=== PATIENT | female | born 1945 | race Caucasian/White ===

== ENCOUNTER → 2018-05-11 | Outpatient (CLI) | payer MEDICARE ==
[~2018-05-11] MED LIST: ACETAMINOPHEN TAB 325 MG TAB PO ONE; LORATADINE 10 MG TAB PO ONE; SODIUM CHLORIDE 0.9% 500 ML in EMPTY BAG 1 BAG IV PRN
[2018-05-11 12:31] VITALS: RESP 16; TEMP 98.4
[2018-05-11 14:14] VITALS: BP 100/66; PULSE 75
== END | disposition home or self-care (01) ==
LOC: PROCWHC3 11:19
PROVIDERS: ATTEND Dermatology
DX: L40.0 Psoriasis vulgaris (principal); Z79.899 Other long term (current) drug therapy
CPT/HCPCS: 96413; 96415; J1745

== ENCOUNTER → 2018-07-06 | Outpatient (CLI) | payer MEDICARE ==
[~2018-07-06] MED LIST changes: +INFLIXIMAB-DYYB 400 MG in SODIUM CHLORIDE 0.9% 250 ML IV NR
[2018-07-06 12:40] VITALS: TEMP 97.8
[2018-07-06 14:12] VITALS: BP 112/53; PULSE 53; RESP 16
== END ==
LOC: PROCWHC3 12:11
PROVIDERS: ATTEND Dermatology
DX: L40.0 Psoriasis vulgaris (principal); Z79.899 Other long term (current) drug therapy
CPT/HCPCS: 96413; 96415; Q5103

== ENCOUNTER → 2018-08-31 | Outpatient (CLI) | payer MEDICARE ==
[~2018-08-31] MED LIST changes: +SODIUM CHLORIDE 0.9% 500 ML 500 ML in EMPTY BAG 1 BAG IV PRN; -SODIUM CHLORIDE 0.9% 500 ML in EMPTY BAG 1 BAG IV PRN
[2018-08-31 12:17] VITALS: RESP 16; TEMP 97.6
[2018-08-31 13:33] VITALS: BP 95/54
[2018-08-31 14:05] VITALS: PULSE 66
== END ==
LOC: PROCWHC3 12:03
PROVIDERS: ATTEND Dermatology
DX: L40.0 Psoriasis vulgaris (principal); Z79.899 Other long term (current) drug therapy
CPT/HCPCS: 96413; 96415; Q5103

== ENCOUNTER → 2018-10-26 | Outpatient (CLI) | payer MEDICARE ==
[~2018-10-26] MED LIST changes: +ACETAMINOPHEN TAB 325 MG TAB PO NR; -ACETAMINOPHEN TAB 325 MG TAB PO ONE; +LORATADINE 10 MG TAB PO NR; -LORATADINE 10 MG TAB PO ONE
[2018-10-26 12:14] VITALS: TEMP 98.2
[2018-10-26 13:15] VITALS: RESP 16
[2018-10-26 13:33] VITALS: BP 102/45; PULSE 68
== END ==
LOC: PROCWHC3 11:38
PROVIDERS: ATTEND Dermatology
DX: L40.0 Psoriasis vulgaris (principal); Z79.899 Other long term (current) drug therapy
CPT/HCPCS: 96413; 96415; Q5103

== ENCOUNTER → 2018-12-21 | Outpatient (CLI) | payer MEDICARE ==
[~2018-12-21] MED LIST changes: -ACETAMINOPHEN TAB 325 MG TAB PO NR; +ACETAMINOPHEN TAB 325 MG TAB PO ONE; -LORATADINE 10 MG TAB PO NR; +LORATADINE 10 MG TAB PO ONE
[2018-12-21 12:18] VITALS: TEMP 98.3
[2018-12-21 13:09] VITALS: RESP 16
[2018-12-21 13:51] VITALS: BP 102/52; PULSE 62
== END | disposition home or self-care (01) ==
LOC: PROCWHC3 11:37
PROVIDERS: ATTEND Dermatology
DX: L40.0 Psoriasis vulgaris (principal); Z79.899 Other long term (current) drug therapy
CPT/HCPCS: 96413; 96415; Q5103

== ENCOUNTER → 2019-02-15 | Outpatient (CLI) | payer MEDICARE ==
[~2019-02-15] MED LIST changes: +ACETAMINOPHEN TAB 325 MG TAB PO NR; -ACETAMINOPHEN TAB 325 MG TAB PO ONE; +LORATADINE 10 MG TAB PO NR; -LORATADINE 10 MG TAB PO ONE
[2019-02-15 12:00] VITALS: TEMP 98.1
[2019-02-15 12:40] VITALS: RESP 16
[2019-02-15 13:35] VITALS: BP 105/51; PULSE 61
== END ==
LOC: PROCWHC3 11:37
PROVIDERS: ATTEND Dermatology
DX: L40.0 Psoriasis vulgaris (principal); Z79.899 Other long term (current) drug therapy
CPT/HCPCS: 96413; 96415; Q5103

== ENCOUNTER → 2019-06-07 | Outpatient (CLI) | payer MEDICARE ==
[2019-06-07 12:14] VITALS: RESP 16
[2019-06-07 12:21] VITALS: TEMP 97.9
[2019-06-07 13:31] VITALS: BP 92/54; PULSE 58
== END | disposition home or self-care (01) ==
LOC: PROCWHC3 11:45
PROVIDERS: ATTEND Dermatology
DX: L40.0 Psoriasis vulgaris (principal)
CPT/HCPCS: 96413; 96415; Q5103

== ENCOUNTER → 2019-08-02 | Outpatient (CLI) | payer MEDICARE ==
[2019-08-02 12:33] VITALS: RESP 16; TEMP 98.2
[2019-08-02 13:56] VITALS: BP 101/63; PULSE 61
== END | disposition home or self-care (01) ==
LOC: PROCWHC3 11:37
PROVIDERS: ATTEND Dermatology
DX: L40.0 Psoriasis vulgaris (principal)
CPT/HCPCS: 96413; 96415; Q5103

== ENCOUNTER 2019-08-28 12:07 | Inpatient (IN) | payer MEDICARE ==
[2019-08-28] MEDS ORDERED: methylPREDNISolone SOD SUCCI 125 MG/2 ML VIAL IV STA (13:18)
[2019-08-28] MEDS ORDERED: IPRATROPIUM-ALBUTEROL 3 ML NEB INHALATION STA (13:18)
--- NOTE | 2019-08-28 13:29 | ED ---
General Adult HPI - General Chief complaint: Shortness of Breath Stated complaint: Dx PNEUMONIA, SENT BY Time Seen by Provider: 08/28/19 12:33 Source: patient, RN notes reviewed Mode of arrival: wheelchair Limitations: physical limitation - History of Present Illness Initial comments: Patient is a pleasant 24-year-old female presenting to the emergency department with concerns for possible pneumonia. Patient states last week she has been more short of breath and cough with yellow sputum. No fevers. No chest pain. Patient did see her doctor today and had an x-ray done concerning for pneumonia. Patient was advised come to the hospital. Patient also has history of COPD and feels that is concerning to her problems as well. - Related Data Home Medications Medication Instructions Recorded Confirmed ALPRAZolam [Xanax] 0.25 mg PO HS 05/11/18 08/28/19 Aspirin EC [Ecotrin] 325 mg PO DAILY 05/11/18 08/28/19 Calcium Carbonate/Vitamin D3 1 cap PO BID 05/11/18 08/28/19 [Calcium 600-Vit D3 500 Softgel] Cranberry Fruit Extract [Cranberry] 400 mg PO TID 05/11/18 08/28/19 Glucosamine/MSM/Chrond/D3/Bosw 2 tab PO DAILY 05/11/18 08/28/19 [Rvoixntbzmc-Bjxlno-CXU-D3 Cplt] HYDROcodone/APAP 10-325MG [Dorris 0.5 tab PO Q4HR 05/11/18 08/28/19 10-325] Ipratropium-Albuterol Nebulize 3 ml INHALATION RT-QID 05/11/18 08/28/19 [Duoneb 0.5 mg-3 mg/3 ml Soln] Magnesium Gluconate [Magonate] 500 mg PO DAILY 05/11/18 08/28/19 Multivit-Min/Iron/Folic/Lutein 1 tab PO DAILY 05/11/18 08/28/19 [Centrum Silver Women Tablet] Pantoprazole [Protonix] 40 mg PO DAILY 05/11/18 08/28/19 Propranolol HCl 80 mg PO BID 05/11/18 08/28/19 Sertraline HCl [Zoloft] 100 mg PO DAILY 05/11/18 08/28/19 inFLIXimab [Remicade] 400 mg IVPB Q56D 05/11/18 08/28/19 Fluticasone/Salmeterol [Advair 1 puff INHALATION RT-BID 08/28/19 08/28/19 500-50 Diskus] Furosemide [Lasix] 40 mg PO BID 08/28/19 08/28/19 Gabapentin 800 mg PO TID 08/28/19 08/28/19 Linaclotide [Linzess] 145 mcg PO DAILY PRN 08/28/19 08/28/19 Propylene Glycol/Peg 400/Pf 1 - 2 drops BOTH EYES QID PRN 08/28/19 08/28/19 [Systane 0.3-0.4% Eye Drops] Spironolactone [Aldactone] 25 mg PO DAILY 08/28/19 08/28/19 Allergies Allergy/AdvReac Type Severity Reaction Status Date / Time etanercept [From Enbrel] Allergy Rash/Hives Verified 08/28/19 13:21 sulfamethoxazole Allergy Chest Pain Verified 08/28/19 13:21 [From Bactrim] trimethoprim [From Bactrim] Allergy Chest Pain Verified 08/28/19 13:21 clindamycin AdvReac Chest Pain Verified 08/28/19 13:21 codeine AdvReac Abdominal Verified 08/28/19 13:21 Pain moxifloxacin [From Avelox] AdvReac Chest Pain Verified 08/28/19 13:21 embril Allergy Rash/Hives Uncoded 08/28/19 12:26 Review of Systems ROS Statement: Those systems with pertinent positive or pertinent negative responses have been documented in the HPI. ROS Other: All systems not noted in ROS Statement are negative. Constitutional: Denies: fever Eyes: Denies: eye pain ENT: Denies: ear pain Respiratory: Reports: cough, dyspnea Cardiovascular: Denies: chest pain Endocrine: Reports: fatigue Gastrointestinal: Denies: abdominal pain Genitourinary: Denies: dysuria Musculoskeletal: Denies: back pain Skin: Denies: rash Neurological: Denies: weakness Past Medical History Past Medical History: Atrial Fibrillation, COPD, Fibromyalgia, Osteoarthritis (OA) Additional Past Medical History / Comment(s): Puscular, Psoriatric, and Rheumatoid Arthritis. Emphysema. Macular degeneration bilateral eyes History of Any Multi-Drug Resistant Organisms: None Reported Past Surgical History: Appendectomy, Cholecystectomy, Orthopedic Surgery Additional Past Surgical History / Comment(s): Bilateral TKR. 3 benign breast tumors removed. Bilateral cataract Past Anesthesia/Blood Transfusion Reactions: No Reported Reaction Past Psychological History: Depression Smoking Status: Current some day smoker Past Alcohol Use History: None Reported Past Drug Use History: None Reported General Exam Limitations: physical limitation General appearance: alert, in no apparent distress Head exam: Present: normocephalic Eye exam: Present: normal appearance, PERRL ENT exam: Present: normal oropharynx Neck exam: Present: normal inspection Respiratory exam: Present: wheezes, rales (Left base) Cardiovascular Exam: Present: tachycardia, irregular rhythm GI/Abdominal exam: Present: soft. Absent: tenderness Extremities exam: Present: normal inspection. Absent: pedal edema, calf tenderness Neurological exam: Present: alert Psychiatric exam: Present: normal affect, normal mood Skin exam: Present: normal color Course Vital Signs 08/28/19 08/28/19 08/28/19 12:22 13:00 13:28 Temperature 98.9 F Pulse Rate 107 H 101 H 101 H Respiratory 26 H 24 Rate Blood Pressure 111/77 94/67 O2 Sat by Pulse 79 L 90 L Oximetry 08/28/19 08/28/19 08/28/19 13:30 13:42 14:00 Temperature Pulse Rate 113 H 108 H 105 H Respiratory 24 22 Rate Blood Pressure 92/69 112/72 O2 Sat by Pulse 90 L 92 L Oximetry - Reevaluation(s) Reevaluation #1: 08/28/19 15:00 Patient does meet sepsis criteria diagnosed at 1500. Blood culture and lactic acid have been ordered. IV antibiotics will be ordered. Fluid bolus has been ordered. EKG Findings - EKG Comments: EKG Findings:: A. fib with rate of 95. QRS 84. QT 340. QTc 427. Normal axis. Septal Q waves. No acute ST change. Medical Decision Making - Medical Decision Making Patient reevaluated and updated. Case was discussed in detail with Dr. Diallo, who will admit, covering for Dr. Vines. - Lab Data Result diagrams: 08/28/19 12:43 08/28/19 12:43 Lab Results 08/28/19 08/28/19 08/28/19 Range/Units 12:43 12:43 12:43 WBC 17.5 H (3.8-10.6) k/uL RBC 4.61 (3.80-5.40) m/uL Hgb 15.6 (11.4-16.0) gm/dL Hct 46.2 H (34.0-46.0) % MCV 100.4 H (80.0-100.0) fL MCH 33.8 (25.0-35.0) pg MCHC 33.7 (31.0-37.0) g/dL RDW 13.0 (11.5-15.5) % Plt Count 376 (150-450) k/uL Neutrophils % 85 % Lymphocytes % 8 % Monocytes % 4 % Eosinophils % 0 % Basophils % 2 % Neutrophils # 14.8 H (1.3-7.7) k/uL Lymphocytes # 1.4 (1.0-4.8) k/uL Monocytes # 0.7 (0-1.0) k/uL Eosinophils # 0.0 (0-0.7) k/uL Basophils # 0.4 H (0-0.2) k/uL PT (9.0-12.0) sec INR (<1.2) APTT (22.0-30.0) sec Sodium 134 L (137-145) mmol/L Potassium 5.1 (3.5-5.1) mmol/L Chloride 86 L (98-107) mmol/L Carbon Dioxide 39 H (22-30) mmol/L Anion Gap 9 mmol/L BUN 27 H (7-17) mg/dL Creatinine 0.69 (0.52-1.04) mg/dL Est GFR (CKD-EPI)AfAm >90 (>60 ml/min/1.73 sqM) Est GFR (CKD-EPI)NonAf 87 (>60 ml/min/1.73 sqM) Glucose 93 (74-99) mg/dL Plasma Lactic Acid Alberto 2.2 H* (0.7-2.0) mmol/L Calcium 10.1 (8.4-10.2) mg/dL Total Bilirubin 0.7 (0.2-1.3) mg/dL AST 48 H (14-36) U/L ALT 66 H (9-52) U/L Alkaline Phosphatase 142 H (38-126) U/L Total Protein 7.5 (6.3-8.2) g/dL Albumin 3.7 (3.5-5.0) g/dL 08/28/19 Range/Units 12:43 WBC (3.8-10.6) k/uL RBC (3.80-5.40) m/uL Hgb (11.4-16.0) gm/dL Hct (34.0-46.0) % MCV (80.0-100.0) fL MCH (25.0-35.0) pg MCHC (31.0-37.0) g/dL RDW (11.5-15.5) % Plt Count (150-450) k/uL Neutrophils % % Lymphocytes % % Monocytes % % Eosinophils % % Basophils % % Neutrophils # (1.3-7.7) k/uL Lymphocytes # (1.0-4.8) k/uL Monocytes # (0-1.0) k/uL Eosinophils # (0-0.7) k/uL Basophils # (0-0.2) k/uL PT 11.1 (9.0-12.0) sec INR 1.1 (<1.2) APTT 24.7 (22.0-30.0) sec Sodium (137-145) mmol/L Potassium (3.5-5.1) mmol/L Chloride (98-107) mmol/L Carbon Dioxide (22-30) mmol/L Anion Gap mmol/L BUN (7-17) mg/dL Creatinine (0.52-1.04) mg/dL Est GFR (CKD-EPI)AfAm (>60 ml/min/1.73 sqM) Est GFR (CKD-EPI)NonAf (>60 ml/min/1.73 sqM) Glucose (74-99) mg/dL Plasma Lactic Acid Alberto (0.7-2.0) mmol/L Calcium (8.4-10.2) mg/dL Total Bilirubin (0.2-1.3) mg/dL AST (14-36) U/L ALT (9-52) U/L Alkaline Phosphatase (38-126) U/L Total Protein (6.3-8.2) g/dL Albumin (3.5-5.0) g/dL - Radiology Data Interpreted by me: Chest x-ray is concerning for right lower lobe infiltrate. There is cardiomeg lisbet and postoperative stent. COPD. Critical Care Time Critical Care Time: Yes Total Critical Care Time: 32 Disposition Clinical Impression: Acute exacerbation of chronic obstructive pulmonary disease, Pneumonia, Sepsis Disposition: ADMITTED IP TO THIS [facility] Condition: Serious Is patient prescribed a controlled substance at d/c from ED?: No Referrals: Tex Vines MD [Primary Care Provider] - 1-2 days Decision Time: 15:01
[2019-08-28] MEDS ORDERED: SODIUM CHLORIDE 0.9% 500 ML 500 ML IV SCH (13:30)
[2019-08-28 13:50] LABS: INR 1.1 (<1.2); Partial Thromboplastin Time 24.7 sec (22.0-30.0); Prothrombin Time 11.1 sec (9.0-12.0)
[2019-08-28 13:51] LABS: ALT 66 U/L (9-52); AST 48 U/L (14-36); African American GFR (CKD) >90 (>60 ml/min/1.73 sqM); Albumin 3.7 g/dL (3.5-5.0); Alkaline Phosphatase 142 U/L (38-126); Basophils # (A) 0.4 k/uL (0-0.2); Basophils % (A) 2 %; Blood Urea Nitrogen 27 mg/dL (7-17); Calcium 10.1 mg/dL (8.4-10.2); Chloride 86 mmol/L (98-107); Eosinophils % (A) 0 %; Glucose 93 mg/dL (74-99); HCT 46.2 % (34.0-46.0); HGB 15.6 gm/dL (11.4-16.0); Lymphocytes # (A) 1.4 k/uL (1.0-4.8); Lymphocytes % (A) 8 %; MCH 33.8 pg (25.0-35.0); MCHC 33.7 g/dL (31.0-37.0); MCV 100.4 fL (80.0-100.0); Mean Platelet Volume 6.3; Monocytes # (A) 0.7 k/uL (0-1.0); Monocytes % (A) 4 %; Neutrophils # (A) 14.8 k/uL (1.3-7.7); Neutrophils % (A) 85 %; Non-African American GFR(CKD) 87 (>60 ml/min/1.73 sqM); Platelet Count 376 k/uL (150-450); Potassium 5.1 mmol/L (3.5-5.1); RBC 4.61 m/uL (3.80-5.40); Sodium 134 mmol/L (137-145); Total Bilirubin 0.7 mg/dL (0.2-1.3); Total Protein 7.5 g/dL (6.3-8.2); WBC 17.5 k/uL (3.8-10.6)
[2019-08-28 13:58] LABS: Anion Gap 9 mmol/L
[2019-08-28] MEDS: SODIUM CHLORIDE 0.9% 1,000 ML IV SCH ×2 (14:00→21:31)
[2019-08-28 14:03] LABS: Carbon Dioxide 39 mmol/L (22-30)
[2019-08-28] MEDS ORDERED: SODIUM CHLORIDE 0.9% 1,000 ML IV STA (14:20)
[2019-08-28] MEDS ORDERED: SODIUM CHLORIDE 0.9% 500 ML 500 ML IV STA (14:20)
--- NOTE | 2019-08-28 14:58 | XR ---
EXAMINATION TYPE: XR chest 2V DATE OF EXAM: 08/28/2019 COMPARISON: None HISTORY: 74-year-old female with fever TECHNIQUE: AP and lateral views FINDINGS: Heart is mildly enlarged. Endovascular aortic stent graft is demonstrated. Hyperinflation with inters titial prominence. Airspace disease at the right base with possible trace right effusion. Apparent an eurysm ascending aorta 4.7 cm along the nonstented portion. IMPRESSION: 1. Correlate for right basilar pneumonia. Follow-up after treatment to ensure clearance. Likely small right-sided parapneumonic effusion. 2. COPD. 3. 4.7 cm ascending aortic aneurysm with prior endovascular aortic stent graft of the arch and upper descending aorta.
[2019-08-28] MEDS ORDERED: PNEUMONIA PROTOCOL UTILIZED 1 EACH MISC PO PRN (15:02)
[2019-08-28] MEDS ORDERED: IPRATROPIUM-ALBUTEROL 3 ML NEB INHALATION PRN (15:02)
[2019-08-28] MEDS ORDERED: AZITHROMYCIN 500 MG in SODIUM CHLORIDE 0.9% 250 ML IVPB STA (15:02)
[2019-08-28] MEDS: IPRATROPIUM-ALBUTEROL 3 ML NEB INHALATION SCH ×3 (16:31→22:35)
[2019-08-28] MEDS ORDERED: methylPREDNISolone SOD SUCCI 40 MG/ML 1 ML VIAL IV SCH (21:16)
--- NOTE | 2019-08-28 21:28 | P.HPIM ---
History of Present Illness H&P Date: 08/28/19 Chief Complaint: Short of breath History of presenting complaint: This is a pleasant 74-year-old patient of Dr. Tex Vines. Chronic stable medical conditions include atrial fibrillation, fibromyalgia, osteoarthritis, psoriatic stenosis arthritis. Patient is a long-standing smoker. Patient has been progressively getting more and more short of breath. Santiago a cough with occasional phlegm. Appetite is gone down. Patient become decreased light 100 week and to to 3 falls at home. Breathing is been difficult at rest. Patient has continued to smoke. Checks x-ray did show infiltrates admitted for pneumonia and COPD exacerbation. She'll also follow hypoxic in the ER. Review of systems: GEN.: Weak tired rundown EYES: None HEENT: None NECK: None RESPIRATORY: As above CARDIOVASCULAR: None GASTROINTESTINAL: None GENITOURINARY: None MUSCULOSKELETAL: Joint pains LYMPHATICS: None HEMATOLOGICAL: None PSYCHIATRY: Anxious NEUROLOGICAL: None Past history to include: Atrial fibrillation, COPD, scoliosis with psoriatic arthropathy, depression Social history: Lives alone. Has been smoking for many years. Physical examination: VITAL SIGNS: 98.9, 107, 26, 11 , 79% on 2 L GENERAL: BMI 23.5, sitting upon bed, short of breath. EYES: Pupils equal. Conjunctiva normal. HEENT: External appearance of nose and ears normal, oral cavity grossly normal. NECK: JVD not raised; masses not palpable. HEART: . Regular heart sounds; no edema. LUNGS: Respiratory rate increased, diminished breath sounds prolonged expiration and wheezing. ABDOMEN: Soft, nontender, liver spleen not palpable, no masses palpable. PSYCH: Alert and oriented x3; mood and affect anxiousl. NEUROLOGICAL: Cranial nerves grossly intact; no facial asymmetry, power and sensation grossly intact. LYMPHATICS: No lymph nodes palpable in the axilla and neck MUSCULOSKELETAL: Evidence of arthritis especially in the hands and both the proximal and distal interphalangeal joints INVESTIGATIONS, reviewed in the clinical context: White count 7.5 hemoglobin 15.6 potassium 5.1 creatinine 0.69 lactic acid 2.2 AST 48 ALT 66 EKG tracing personally reviewed by me-atrial fibrillation with rate around 100 Chest x-ray film personally reviewed by me-showing endovascular graft in the aortic arch and infiltrate of the right side Assessment: -Right-sided pneumonia suspect gram-negative organism, POA -Acute COPD exacerbation in a current smoker -Chronic nicotine dependence patient cigarette smoker -Persistent atrial fibrillation, patient is both on anticoagulation -Primary osteoarthritis -Psoriatic arthritis -Depression otherwise specified Plan: -Patient started on nebulized bronchodilators, IV steroids and anemia steroids. Mucinex is been added. Patient's been put on IV ceftriaxone. Home medications resumed. Patient is put on telemetry. Nicotine patch was given. Care was d iscussed with the patient. Lovenox for DVT prophylaxis. Past Medical History Past Medical History: Atrial Fibrillation, COPD, Fibromyalgia, Osteoarthritis (OA) Additional Past Medical History / Comment(s): Puscular, Psoriatric, and Rh eumatoid Arthritis. Emphysema. Macular degeneration bilateral eyes History of Any Multi-Drug Resistant Organisms: None Reported Past Surgical History: Appendectomy, Cholecystectomy, Orthopedic Surgery Additional Past Surgical History / Comment(s): Bilateral TKR. 3 benign breast tumors removed. Bilateral cataract Past Anesthesia/Blood Transfusion Reactions: No Reported Reaction Past Psychological History: Depression Smoking Status: Current some day smoker Past Alcohol Use History: None Reported Past Drug Use History: None Reported - Past Family History Father Family Medical History: Myocardial Infarction (PA) Medications and Allergies Home Medications Medication Instructions Recorded Confirmed Type ALPRAZolam [Xanax] 0.25 mg PO HS 05/11/18 08/28/19 History Aspirin EC [Ecotrin] 325 mg PO DAILY 05/11/18 08/28/19 History Calcium Carbonate/Vitamin D3 1 cap PO BID 05/11/18 08/28/19 History [Calcium 600-Vit D3 500 Softgel] Cranberry Fruit Extract [Cranberry] 400 mg PO TID 05/11/18 08/28/19 History Glucosamine/MSM/Chrond/D3/Bosw 2 tab PO DAILY 05/11/18 08/28/19 History [Kprsfewintk-Hkwrjz-VTD-D3 Cplt] HYDROcodone/APAP 10-325MG [[place] 0.5 tab PO Q4HR 05/11/18 08/28/19 History 10-325] Ipratropium-Albuterol Nebulize 3 ml INHALATION RT-QID 05/11/18 08/28/19 History [Duoneb 0.5 mg-3 mg/3 ml Soln] Magnesium Gluconate [Magonate] 500 mg PO DAILY 05/11/18 08/28/19 History Multivit-Min/Iron/Folic/Lutein 1 tab PO DAILY 05/11/18 08/28/19 History [Centrum Silver Women Tablet] Pantoprazole [Protonix] 40 mg PO DAILY 05/11/18 08/28/19 History Propranolol HCl 80 mg PO BID 05/11/18 08/28/19 History Sertraline HCl [Zoloft] 100 mg PO DAILY 05/11/18 08/28/19 History inFLIXimab [Remicade] 400 mg IVPB Q56D 05/11/18 08/28/19 History Fluticasone/Salmeterol [Advair 1 puff INHALATION RT-BID 08/28/19 08/28/19 History 500-50 Diskus] Furosemide [Lasix] 40 mg PO BID 08/28/19 08/28/19 History Gabapentin 800 mg PO TID 08/28/19 08/28/19 History Linaclotide [Linzess] 145 mcg PO DAILY PRN 08/28/19 08/28/19 History Propylene Glycol/Peg 400/Pf 1 - 2 drops BOTH EYES QID PRN 08/28/19 08/28/19 History [Systane 0.3-0.4% Eye Drops] Spironolactone [Aldactone] 25 mg PO DAILY 08/28/19 08/28/19 History Allergies Allergy/AdvReac Type Severity Reaction Status Date / Time etanercept [From Enbrel] Allergy Rash/Hives Verified 08/28/19 13:21 sulfamethoxazole Allergy Chest Pain Verified 08/28/19 13:21 [From Bactrim] trimethoprim [From Bactrim] Allergy Chest Pain Verified 08/28/19 13:21 clindamycin AdvReac Chest Pain Verified 08/28/19 13:21 codeine AdvReac Abdominal Verified 08/28/19 13:21 Pain moxifloxacin [From Avelox] AdvReac Chest Pain Verified 08/28/19 13:21 embril Allergy Rash/Hives Uncoded 08/28/19 12:26 Physical Exam Vitals: Vital Signs Temp Pulse Pulse Resp BP BP Pulse Ox 08/28/19 19:33 96 08/28/19 19:23 92 08/28/19 17:08 97.8 F 94 16 104/73 96 08/28/19 16:39 104 H 08/28/19 16:33 100 08/28/19 15:00 103 H 18 118/74 92 L 08/28/19 14:00 105 H 22 112/72 92 L 08/28/19 13:42 108 H 08/28/19 13:30 113 H 24 92/69 90 L 08/28/19 13:28 101 H 08/28/19 13:00 101 H 24 94/67 90 L 08/28/19 12:22 98.9 F 107 H 26 H 111/77 79 L Intake and Output 08/28/19 08/28/19 08/28/19 06:59 14:59 22:59 Other: Weight 68.039 kg Results CBC & Chem 7: 08/28/19 12:43 08/28/19 12:43 Labs: Abnormal Lab Results - Last 24 Hours (Table) 08/28/19 08/28/19 08/28/19 Range/Units 12:43 12:43 12:43 WBC 17.5 H (3.8-10.6) k/uL Hct 46.2 H (34.0-46.0) % MCV 100.4 H (80.0-100.0) fL Neutrophils # 14.8 H (1.3-7.7) k/uL Basophils # 0.4 H (0-0.2) k/uL Sodium 134 L (137-145) mmol/L Chloride 86 L (98-107) mmol/L Carbon Dioxide 39 H (22-30) mmol/L BUN 27 H (7-17) mg/dL Plasma Lactic Acid Alberto 2.2 H* (0.7-2.0) mmol/L AST 48 H (14-36) U/L ALT 66 H (9-52) U/L Alkaline Phosphatase 142 H (38-126) U/L Thrombosis Risk Factor Assmnt - Choose All That Apply Any of the Below Risk Factors Present?: Yes Each Factor Represents 1 point: Abnormal pulmonary function (COPD) Other Risk Factors: Yes Each Risk Factor Represents 2 Points: Age 61-74 years Thrombosis Risk Factor Assessment Total Risk Factor Score: 3 Thrombosis Risk Factor Assessment Level: Moderate Risk
[2019-08-28] MEDS: ALPRAZolam 0.25 MG TAB PO SCH (21:30)
[2019-08-28] MEDS: PROPRANOLOL 40 MG TAB PO SCH (21:30)
[2019-08-28] MEDS: CALCIUM CARB-VIT D 500MG-200UN 1 EACH TAB PO SCH (21:30)
[2019-08-28] MEDS: GABAPENTIN 400 MG CAP PO SCH (21:30)
[2019-08-28] MEDS: ENOXAPARIN 40 MG/0.4 ML SYRINGE SQ SCH (21:53)
[2019-08-28] MEDS: NICOTINE 14MG/24HR PATCH TRANSDERM SCH (21:54)
[2019-08-28] MEDS: guaiFENesin 600 MG TABLET.ER PO SCH (21:56)
[2019-08-28] MEDS: BUDESONIDE 1 MG/2 ML NEBU INHALATION SCH (22:35)
[2019-08-29] MEDS: IPRATROPIUM-ALBUTEROL 3 ML NEB INHALATION SCH ×7 (00:22→23:27)
[2019-08-29] MEDS: methylPREDNISolone SOD SUCCI 40 MG/ML 1 ML VIAL IV SCH ×4 (01:47→14:31)
[2019-08-29] MEDS: HYDROcodone/APAP 10-325MG 1 EACH TAB PO SCH ×4 (06:39→21:19)
--- NOTE | 2019-08-29 08:20 | XR ---
EXAMINATION TYPE: XR chest 2V DATE OF EXAM: 08/29/2019 COMPARISON: Prior chest x-ray 08/28/2019 HISTORY: Pneumonia TECHNIQUE: Frontal and lateral views of the chest are obtained. FINDINGS: Aortic stent graft is again noted. There is aortic aneurysm present. No evident pneumothor ax. Heart remains enlarged. Right hemidiaphragm and heart border are obscured by airspace disease. Th ere are overlying cardiac leads and the patient is rotated. Prominent lung volumes consistent with un derlying COPD. IMPRESSION: Right lower lobe pneumonia and associated pleural effusion. Cardiomegaly, aortic aneurys m.
[2019-08-29] MEDS: BUDESONIDE 1 MG/2 ML NEBU INHALATION SCH ×2 (08:25→19:59)
[2019-08-29] MEDS: ASPIRIN 325 MG TAB PO SCH (10:05)
[2019-08-29] MEDS: CALCIUM CARB-VIT D 500MG-200UN 1 EACH TAB PO SCH ×2 (10:06→21:19)
[2019-08-29] MEDS: AZITHROMYCIN 500 MG TAB PO SCH (10:06)
[2019-08-29] MEDS: FUROSEMIDE 40 MG TAB PO SCH ×2 (10:07→14:30)
[2019-08-29] MEDS: ENOXAPARIN 40 MG/0.4 ML SYRINGE SQ SCH (10:07)
[2019-08-29] MEDS: GABAPENTIN 400 MG CAP PO SCH ×3 (10:07→21:18)
[2019-08-29] MEDS: guaiFENesin 600 MG TABLET.ER PO SCH ×2 (10:08→21:18)
[2019-08-29] MEDS: NICOTINE 14MG/24HR PATCH TRANSDERM SCH (10:09)
[2019-08-29] MEDS: MAGNESIUM OXIDE 400 MG TAB PO SCH (10:09)
[2019-08-29] MEDS: MULTIVITAMINS, THERA 1 EACH TAB PO SCH (10:09)
[2019-08-29] MEDS: PANTOPRAZOLE 40 MG TABLET PO SCH (10:10)
[2019-08-29] MEDS: SERTRALINE 100 MG TAB PO SCH (10:10)
[2019-08-29] MEDS: PROPRANOLOL 40 MG TAB PO SCH ×2 (10:10→21:23)
[2019-08-29] MEDS: SPIRONOLACTONE 25 MG TAB PO SCH (10:11)
[2019-08-29] MEDS: CHROND PO SCH (10:25)
[2019-08-29] MEDS: D3 PO SCH (10:25)
[2019-08-29] MEDS: [UNRECOGNIZED DRUG - OTHER] PO SCH (10:25)
[2019-08-29] MEDS: MSM PO SCH (10:25)
[2019-08-29] MEDS: GLUCOSAMINE PO SCH (10:25)
--- NOTE | 2019-08-29 12:06 | CDI ---
Documentation Clarification Form Date: 08/29/2019 11:43:54 AM From: Prudence Florez RN, CCDS Admit Date: 08/28/2019 3:03:00 PM Patient Name: Julieta Koo Visit Number: [id number] Discharge Date: ATTENTION: The Clinical Documentation Specialists (CDI) and [facility] Coding Staff appreciate your assistance in clarifying documentation. Please respond to the clarification below the line at the bottom and electronically sign. The CDI & [facility] Coding staff will review the response and follow-up if needed. Please note: Queries are made part of the Legal Health Record. If you have any questions, please contact the author of this message via ITS. Dr. Abhay Diallo The patient presented with the a diagnosis of pneumonia sent in by her primary care physician. 08/28/19 ED revaluation @ 1500: patient does meet sepsis criteria History/Risk Factors: COPD, Atrial Fibrillation, Current same day smoker Clinical Indicators: 74-year-old female present with complaints of shortness of breath and cough, yellow sputum. She was seen and had an x-ray done concerning for pneumonia. She Is tachycardic, lungs with rales and has wheezes, short of breath with activity. Vital signs: 111/77 107 26 98.9, 79 % 2/L NC, 94/67 102 24, 90% 2/l NC, 92/69 113 24 90 % 2/L NC WBC 17.5 Lactic acid: 2.2 Chest x-ray: correlate for right basilar pneumonia, COPD Blood cultures: ordered, Pending Treatment: Telemetry Monitoring Duoneb's Inhalation, Pulmicort inhalation Zithromax PO Rocephin IV, Solu-Medrol IV (titrate) Mucinex PO In your professional opinion, please clarify if these findings signify one of the following conditions, whether the condition is POA, and cause, if known: Condition Sepsis ruled in and treated this admission POA Sepsis ruled out Other, please specify Unable to determine SIRS Criteria (2 or more of the following may indicate SIRS): -Temperature < 96.8F (36C) or > 101.0F (38.3C) -Heart Rate > 90 bpm -Respiratory Rate > 20 breaths/min or PaCO2 < 32 mmHg -White Blood Cell Count > 12,000 or < 4,000 cells/mm3 or > 10% bands -Lactate >2.0 mmol/L (>4.0 is equivalent to septic shock) (Last Revision: January 2018) Sepsis from pneumonia, POA MTDD
--- NOTE | 2019-08-29 12:29 | CDI ---
Documentation Clarification Form Date: 08/29/2019 12:08:48 PM From: Prudence Florez RN, CCDS Admit Date: 08/28/2019 3:03:00 PM Patient Name: Julieta Koo Visit Number: [id number] Discharge Date: ATTENTION: The Clinical Documentation Specialists (CDI) and [facility] Coding Staff appreciate your assistance in clarifying documentation. Please respond to the clarification below the line at the bottom and electronically sign. The CDI & [facility] Coding staff will review the response and follow-up if needed. Please note: Queries are made part of the Legal Health Record. If you have any questions, please contact the author of this message via ITS. Dr. Abhay Diallo The patient presented with the following respiratory symptoms: shortness of breath, labored, cough, short of breath with activity. History/Risk Factors: COPD, Atrial Fibrillation, Pneumonia, Current same day smoker Clinical Indicators: 74-year-old female has been progressively getting more and more short of breath. Breathing has been difficult at rest. She is weak, tired, and rundown. She was also hypoxic in the ER. Vital signs: 111/77 107 26 79 % 2 L, NC, 118/74 103 18 92 % 3/L venti mask, 08/29/19 134/76 81 22 95 % 4/L NC, 174/70 88 22 92 % 4/L NC Treatment: Telemetry monitoring Breathing tx: Duoneb Inhalation, Pulmicort Inhalation Zithromax po Rocephin IV Solu-Medrol IV (titrate) Monitor O2 Sat's (titrate) In your professional opinion, can you please clarify if these findings signify one of the following conditions? Acute Respiratory Failure Acute on Chronic Respiratory Failure Other Diagnosis, please specify Unable to determine Specificity: If known, further specify (if known): With hypercapnia? (pCO2 >50 and pH <7.35) With hypoxia? (pO2 <60 mm Hg or SpO2 <91% on room air) (Last Query Form Revision: June 2019) Acute hypoxic respiratory failure, from pneumonia, POA MTDD
[2019-08-29 17:08] LABS: Glucose,Whole Blood 178 mg/dL (75-99)
[2019-08-29] MEDS: DILTIAZEM ORAL 30 MG TAB PO SCH (21:18)
--- NOTE | 2019-08-29 21:54 | P.PN ---
Progress Note - Text Progress Note Date: 08/29/19 Chief Complaint: Short of breath Interval history: This is a pleasant 74-year-old patient of Dr. Tex Vines. Chronic stable medical conditions include atrial fibrillation, fibromyalgia, osteoarthritis, psoriatic stenosis arthritis. Patient is a long-standing smoker. Patient has been progressively getting more and more short of breath. Santiago a cough with occasional phlegm. Appetite is gone down. Patient become decreased light 100 week and to to 3 falls at home. Breathing is been difficult at rest. Patient has continued to smoke. Checks x-ray did show infiltrates admitted for pneumonia and COPD exacerbation. She'll also follow hypoxic in the ER. Admitted with pneumonia, acute COPD exacerbation, acute hypoxic respiratory failure. Today-still short of breath. Only shade better. Sitting up and about. Wheezing. Review of systems: Was done for constitutional, cardiovascular, GI, pulmonary. relevant finding as above Active Medications Hydrocodone Bitart/Acetaminophen ([place] 10) 0.5 each PO Q4HR [facility] Last Admin: 08/29/19 21:19 Dose: 0.5 each Documented by: Albuterol/Ipratropium (Duoneb 0.5 Mg-3 Mg/3 Ml Soln) 3 ml INHALATION RT-Q4H PRN PRN Reason: shortness of breath Albuterol/Ipratropium (Duoneb 0.5 Mg-3 Mg/3 Ml Soln) 3 ml INHALATION RT-Q4H [facility] Last Admin: 08/29/19 20:00 Dose: 3 ml Documented by: Alprazolam (Xanax) 0.25 mg PO HS [facility] Last Admin: 08/28/19 21:30 Dose: 0.25 mg Documented by: Aspirin (Aspirin) 325 mg PO DAILY [facility] Last Admin: 08/29/19 10:05 Dose: 325 mg Documented by: Azithromycin (Zithromax) 500 mg PO DAILY [facility] Last Admin: 08/29/19 10:06 Dose: 500 mg Documented by: Budesonide (Pulmicort) 1 mg INHALATION RT-BID [facility] Last Admin: 08/29/19 19:59 Dose: 1 mg Documented by: Calcium Carbonate (Oscal 500+D) 1 each PO BID [facility] Last Admin: 08/29/19 21:19 Dose: 1 each Documented by: Diltiazem HCl (Cardizem Oral) 30 mg PO TID [facility] Last Admin: 08/29/19 21:18 Dose: 30 mg Documented by: Enoxaparin Sodium (Lovenox) 40 mg SQ DAILY [facility] Last Admin: 08/29/19 10:07 Dose: 40 mg Documented by: Furosemide (Lasix) 40 mg PO BID@0900,1600 [facility] Last Admin: 08/29/19 14:30 Dose: 40 mg Documented by: Gabapentin (Neurontin) 800 mg PO TID [facility] Last Admin: 08/29/19 21:18 Dose: 800 mg Documented by: Guaifenesin (Mucinex) 1,200 mg PO Q12HR [facility] Last Admin: 08/29/19 21:18 Dose: 1,200 mg Documented by: Ceftriaxone Sodium 1 gm/ (Sodium Chloride) 50 mls @ 100 mls/hr IVPB Q24HR [facility] Stop: 09/01/19 09:01 Last Admin: 08/29/19 10:36 Dose: 100 mls/hr Documented by: Magnesium Oxide (Mag-Ox) 400 mg PO DAILY [facility] Last Admin: 08/29/19 10:09 Dose: 400 mg Documented by: Methylprednisolone Sodium Succinate (Solu-Medrol) 40 mg IV Q8H [facility] Last Admin: 08/29/19 14:31 Dose: 40 mg Documented by: Miscellaneous Information (Pneumonia Protocol Utilized) 1 each PO ONCE PRN PRN Reason: Per Protocol Multivitamins (Theragran) 1 each PO DAILY [facility] Last Admin: 08/29/19 10:09 Dose: 1 each Documented by: Nicotine (Habitrol 14mg/24hr Patch) 1 patch TRANSDERM DAILY [facility] Last Admin: 08/29/19 10:09 Dose: 1 patch Documented by: Non-Formulary Medication (Glucosamine/Msm/Chrond/D3/Bosw [Xxrhnweokal-Frigae-Xnb-D3 Cplt]) 2 tab PO DAILY [facility] Last Admin: 08/29/19 10:25 Dose: Not Given Documented by: Pantoprazole Sodium (Protonix) 40 mg PO DAILY [facility] Last Admin: 08/29/19 10:10 Dose: 40 mg Documented by: Propranolol HCl (Inderal) 80 mg PO BID [facility] Last Admin: 08/29/19 21:23 Dose: 80 mg Documented by: Sertraline HCl (Zoloft) 100 mg PO DAILY [facility] Last Admin: 08/29/19 10:10 Dose: 100 mg Documented by: Spironolactone (Aldactone) 25 mg PO DAILY [facility] Last Admin: 08/29/19 10:11 Dose: 25 mg Documented by: Physical examination: VITAL SIGNS: 97.8, 81, 22, 134/76, 95% on 4 L GENERAL: Sitting in the edge of the bed, short of breath EYES: Pupils equal. Conjunctiva normal. HEENT: External appearance of nose and ears normal, oral cavity grossly normal. NECK: JVD not raised; masses not palpable. HEART: . Regular heart sounds; no edema. LUNGS: Respiratory rate increased, diminished breath sounds prolonged expiration and wheezing. ABDOMEN: Soft, nontender, liver spleen not palpable, no masses palpable. PSYCH: Alert and oriented x3; mood and affect anxious. MUSCULOSKELETAL: Evidence of arthritis especially in the hands and both the proximal and distal interphalangeal joints INVESTIGATIONS, reviewed in the clinical context: White count 7.5 hemoglobin 15.6 potassium 5.1 creatinine 0.69 lactic acid 2.2 AST 48 ALT 66 EKG tracing personally reviewed by me-atrial fibrillation with rate around 100 Chest x-ray film personally reviewed by me-showing endovascular graft in the aortic arch and infiltrate of the right side Assessment: -Right-sided pneumonia suspect gram-negative organism, POA, slow to respond -Acute COPD exacerbation in a current smoker, POA, slow to respond -Acute hypoxic respiratory failure from COPD exacerbation and pneumonia, POA -Chronic nicotine dependence patient cigarette smoker -Persistent atrial fibrillation, patient is both on anticoagulation -Primary osteoarthritis -Psoriatic arthritis -Depression otherwise specified Plan: Care was discussed with the patient. Currently with bronchodilator steroids in his steroids. Patient may need a BiPAP. Following a diet.
[2019-08-29] MEDS ORDERED: HYDROcodone/APAP 5-325MG 1 EACH TAB PO PRN (23:33)
[2019-08-29] MEDS: ALPRAZolam 0.25 MG TAB PO SCH (23:34)
[2019-08-30] MEDS: methylPREDNISolone SOD SUCCI 40 MG/ML 1 ML VIAL IV SCH ×2 (01:23→06:14)
[2019-08-30] MEDS: IPRATROPIUM-ALBUTEROL 3 ML NEB INHALATION SCH ×3 (03:08→11:44)
[2019-08-30 07:55] LABS: African American GFR (CKD) >90 (>60 ml/min/1.73 sqM); Anion Gap 2 mmol/L; Blood Urea Nitrogen 24 mg/dL (7-17); Calcium 9.2 mg/dL (8.4-10.2); Carbon Dioxide 40 mmol/L (22-30); Chloride 96 mmol/L (98-107); Glucose 110 mg/dL (74-99); Non-African American GFR(CKD) 85 (>60 ml/min/1.73 sqM); Potassium 4.6 mmol/L (3.5-5.1); Sodium 138 mmol/L (137-145)
[2019-08-30] MEDS: DILTIAZEM ORAL 30 MG TAB PO SCH (08:23)
[2019-08-30] MEDS: NICOTINE 14MG/24HR PATCH TRANSDERM SCH (08:23)
[2019-08-30] MEDS: SPIRONOLACTONE 25 MG TAB PO SCH (08:23)
[2019-08-30] MEDS: GABAPENTIN 400 MG CAP PO SCH (08:23)
[2019-08-30] MEDS: SERTRALINE 100 MG TAB PO SCH (08:23)
[2019-08-30] MEDS: guaiFENesin 600 MG TABLET.ER PO SCH (08:23)
[2019-08-30] MEDS: MAGNESIUM OXIDE 400 MG TAB PO SCH (08:23)
[2019-08-30] MEDS: PANTOPRAZOLE 40 MG TABLET PO SCH (08:23)
[2019-08-30] MEDS: CALCIUM CARB-VIT D 500MG-200UN 1 EACH TAB PO SCH (08:23)
[2019-08-30] MEDS: MULTIVITAMINS, THERA 1 EACH TAB PO SCH (08:23)
[2019-08-30] MEDS: AZITHROMYCIN 500 MG TAB PO SCH (08:24)
[2019-08-30] MEDS: ASPIRIN 325 MG TAB PO SCH (08:24)
[2019-08-30] MEDS: FUROSEMIDE 40 MG TAB PO SCH (08:24)
[2019-08-30] MEDS: ENOXAPARIN 40 MG/0.4 ML SYRINGE SQ SCH (08:26)
[2019-08-30] MEDS: PROPRANOLOL 40 MG TAB PO SCH (08:26)
[2019-08-30] MEDS: BUDESONIDE 1 MG/2 ML NEBU INHALATION SCH (08:34)
[2019-08-30] MEDS: MSM PO SCH (10:53)
[2019-08-30] MEDS: D3 PO SCH (10:53)
[2019-08-30] MEDS: [UNRECOGNIZED DRUG - OTHER] PO SCH (10:53)
[2019-08-30] MEDS: GLUCOSAMINE PO SCH (10:53)
[2019-08-30] MEDS: CHROND PO SCH (10:53)
[2019-08-30] MEDS ORDERED: methylPREDNISolone SOD SUCCI 125 MG/2 ML VIAL IV SCH (12:00)
[2019-08-30 12:05] VITALS: BP 130/78; PULSE 98; RESP 21; TEMP 98.1
--- NOTE | 2019-08-30 12:15 | CONS ---
CONSULTATION PULMONARY/CRITICAL CARE CONSULTATION: DATE OF SERVICE: 08/30/2019 REASON FOR CONSULTATION: Right lower lobe pneumonia, severe COPD and hypoxemic respiratory failure. This is a 74-year-old female who presented to the emergency department on August 28. She apparently was not feeling well and had shortness of breath, chest congestion, coughing, wheezing and yellow phlegm production. She had an x-ray that was done by her family doctor and apparently showed some pneumonia and she was sent to the hospital to be evaluated. She was admitted with a diagnosis of COPD exacerbation and pneumonia. This was back on August 28. Today, we received a consultation on this patient. Currently, she is on BiPAP therapy. She does not like the BiPAP, but it is helping her. We attempted AIRVO but apparently her saturations dropped precipitously. She is a do not resuscitate patient. Back in 2014, she did have a pulmonary function test and back then even she had an FEV1 that was only 44% of predicted which suggested severe COPD. She has been smoking all at this time. She continues to smoke. She does see my partner Dr. Blue for her COPD/emphysema. Anyway, she is on the floor. She is back on BiPAP therapy. She had significant shortness of breath and significant conversational dyspnea. HOME MEDICATIONS: Reviewed. She is on Xanax, Ecotrin, vitamin D3/calcium, cranberry extract, glucosamine/chondroitin mixed with MSM, [place], updrafts with albuterol and Atrovent, magnesium gluconate, multivitamins, Protonix, propranolol, Zoloft, Remicade, Advair 500/50, Lasix, gabapentin, Linzess, eye drops, and Aldactone. ALLERGIES: Include ENBREL, BACTRIM, CLINDAMYCIN, CODEINE and AVELOX. MEDICAL HISTORY: Includes atrial fibrillation, severe COPD, fibromyalgia, osteoarthritis, psoriatic arthritis, rheumatoid arthritis, and macular degeneration. SURGICAL HISTORY: Includes bilateral total knee replacement, 3 benign breast tumors removed and bilateral cataract surgery. She has also had appendectomy, cholecystectomy and the orthopedic procedures I mentioned. SOCIAL HISTORY: Positive for ongoing tobacco use. She has been smoking for more than 50 years. She denies any alcohol or illicit drug use. FAMILY HISTORY: Noncontributory. Mother and father were healthy. REVIEW OF SYSTEMS: CONSTITUTIONAL: Weakness. NEUROLOGIC: Negative. HEENT: Negative. CARDIOVASCULAR: Negative. PULMONARY: Shortness of breath, chest congestion, coughing, wheezing, phlegm production. GI: Negative. : Negative. RHEUMATOLOGIC: Negative. IMMUNOLOGIC:: Negative. ENDOCRINOLOGIC: Negative. DERMATOLOGIC: Negative. Current vital signs are reviewed, her temperature is 97.9, heart rate is 92, respiratory rate is probably about 24, blood pressure 112/60, mean 77, saturations on the BiPAP are in the low 90s. Appears to be and mild to moderate distress. Some conversational dyspnea. No audible wheezing. There is use of the accessory muscles of breathing. HEENT: Examination is grossly unremarkable. BiPAP mask in place. NECK: Supple. Full range of motion. No adenopathy. Neck veins are flat. CARDIOVASCULAR: Examination reveals regular rhythm and rate. Heart rate about 92 beats per minute and somewhat irregular. S1, S2 normal. No distinct murmur. Heart sounds are distant. LUNGS: Reveal coarse inspiratory and expiratory rhonchi. Breath sounds are diminished. No crackles. Breath sounds are significantly more diminished in the right base. ABDOMEN: Soft, bowel sounds are heard. EXTREMITIES: Intact. No cyanosis, clubbing, or edema. SKIN: Without rash. NEUROLOGIC: Examination is brief but nonfocal. LAB DATA: Reviewed. White count 17.5, hemoglobin 15.6, hematocrit 46.2, and platelet count 376,000. PT, INR and PTT all normal. Sodium 138, potassium 4.6, chloride 96, CO2 is 40, anion gap is 2. BUN and creatinine were 24 and 0.71. The rest of the labs look okay. Liver function tests were mildly elevated. Calcium 9.2. Lactic acid was 1.2 and 1.1 on repeat. Microbiologic studies are thus far negative. Chest x-ray shows a right lower lobe infiltrate. She has a very extensive aortic stent graft. Her lung volumes are prominent, consistent with COPD. There is also a small right-sided pleural effusion. Medications are reviewed. She is on Zithromax and Rocephin for her right lower lobe pneumonia. This is appropriate. She is also on Pulmicort and Perforomist twice a day. She is getting updrafts. She is on Solu-Medrol 60 mg q.6. She has a nicotine patch in place. All these medications are very appropriate given her clinical situation. ASSESSMENT: 1. Chronic obstructive pulmonary disease exacerbation complicated by right lower lobe pneumonia in a patient with severe chronic obstructive pulmonary disease. FEV1 back in 2014 was 44%. The patient continues to smoke cigarettes. 2. Tobacco dependence syndrome and nicotine addiction. 3. Previous history of aortic valve replacement with aortic graft stent. 4. History of atrial fibrillation. 5. History of fibromyalgia. 6. History of osteoarthritis. 7. History of macular degeneration. 8. Psoriatic arthritis. 9. Rheumatoid arthritis. PLAN: The patient's overall prognosis is poor. She is on appropriate medications including short-acting beta agonist, short-acting muscarinic antagonist, long-acting beta agonist, inhaled corticosteroids, systemic corticosteroids and appropriate antibiotics for her right lower lobe pneumonia. She did not like the BiPAP device. We attempted AIRVO p.o., but she desaturated significantly. Overall prognosis remains very poor. No additional recommendations are made. Not much more to offer this patient given the fact that she is a DNR. Will continue to follow. MMPRASADL / IJN: [id number] /
--- NOTE | 2019-08-30 14:01 | ECHOF ---
Referral Reason:afib, sob MEASUREMENTS -------- HEIGHT: 170.2 cm WEIGHT: 68.0 kg BP: 112/60 RVIDd: 4.1 cm (< 3.3) IVSd: 1.2 cm (0.6 - 1.1) LVIDd: 4.5 cm (3.9 - 5.3) LVPWd: 1.1 cm (0.6 - 1.1) IVSs: 1.7 cm LVIDs: 2.8 cm LVPWs: 1.7 cm LA Diam: 4.4 cm (2.7 - 3.8) LAESV Index (A-L): 60.53 ml/m Ao Diam: 3.2 cm (2.0 - 3.7) AV Cusp: 1.0 cm (1.5 - 2.6) MV EXCURSION: 20.757 mm (> 18.000) MV EF SLOPE: 233 mm/s (70 - 150) EPSS: 0.5 cm AV maxP.94 mmHg AV meanP.70 mmHg RAP: 15.00 mmHg RVSP: 51.60 mmHg FINDINGS -------- Atrial fibrillation. This was a technically adequate study. The left ventricular size is normal. There is borderline concentric left ventricular hypertrophy. Overall left ventricular systolic function is mildly impaired with, an EF between 45 - 50 %. Basal anteroseptal LV wall motion is hypokinetic. The right ventricle is moderately enlarged. LA is severely dilated >40 ml/m2 The right atrium is normal in size. Interatrial and interventricular septum intact. There is moderate to severe aortic valve sclerosis. There is mild aortic regurgitation. There is mild aortic stenosis present. Peak/mean gradient across the Aortic Valve is 23.94mmHg / 11.70mmHg. The mitral valve leaflets are mildly thickened. Mild mitral annular calcification present. Severe mitral regurgitation is present. Severe tricuspid regurgitation present. There is moderate pulmonary hypertension. The right ventr icular systolic pressure, as measured by Doppler, is 51.60mmHg. Trace/mild (physiologic) pulmonic regurgitation. The aortic root size is normal. The inferior vena cava is dilated with no significant inspiratory collapse which is consistent estima anna marie right atrial pressure of >15 mmHg. There is no pericardial effusion. CONCLUSIONS -------- 1. Atrial fibrillation. 2. This was a technically adequate study. 3. The left ventricular size is normal. 4. There is borderline concentric left ventricular hypertrophy. 5. Overall left ventricular systolic function is mildly impaired with, an EF between 45 - 50 %. 6. Basal anteroseptal LV wall motion is hypokinetic. 7. The right ventricle is moderately enlarged. 8. LA is severely dilated >40 ml/m2 9. The right atrium is normal in size. 10. Interatrial and interventricular septum intact. 11. There is moderate to severe aortic valve sclerosis. 12. There is mild aortic regurgitation. 13. There is mild aortic stenosis present. 14. Peak/mean gradient across the Aortic Valve is 23.94mmHg / 11.70mmHg. 15. The mitral valve leaflets are mildly thickened. 16. Mild mitral annular calcification present. 17. Severe mitral regurgitation is present. 18. Severe tricuspid regurgitation present. 19. There is moderate pulmonary hypertension. 20. The right ventricular systolic pressure, as measured by Doppler, is 51.60mmHg. 21. Trace/mild (physiologic) pulmonic regurgitation. 22. The aortic root size is normal. 23. The inferior vena cava is dilated with no significant inspiratory collapse which is consistent es timated right atrial pressure of >15 mmHg. 24. There is no pericardial effusion. ORIENTAL RUG REPAIRER: YADIRA Barriga
[2019-08-30] MEDS ORDERED: FORMOTEROL FUMARATE 20 MCG/2 ML NEBU INHALATION SCH (20:00)
--- NOTE | 2019-08-30 23:01 | P.DS ---
Providers Date of admission: 08/28/19 15:03 Expected date of discharge: 08/30/19 (Patient ) Attending physician: Abhay Diallo Consults: 08/29/19 19:06 Consult Physician Routine Consulting Provider: Tex Morataya Consult Reason/Comments: copd pneumonia Do you want consulting provider notified?: Already Contacted 08/29/19 19:07 Consult Physician Routine Consulting Provider: Yumiko Bearden Consult Reason/Comments: afib Do you want consulting provider notified?: Already Contacted Primary care physician: Tex Vines [facility] Hospital Course: Chief Complaint: Short of breath Hospital course: This is a pleasant 74-year-old patient of Dr. Tex Vines. Chronic stable medical conditions include atrial fibrillation, fibromyalgia, osteoarthritis, psoriatic stenosis arthritis. Patient is a long-standing smoker. Patient has been progressively getting more and more short of breath. Has a cough with occasional phlegm. Appetite is gone down. Patient become tired and week had 3 falls at home. Breathing is been difficult at rest. Patient has continued to smoke. Chest x-ray did show infiltrates . admitted for pneumonia and COPD exacerbation. Also hypoxic in the ER. Saw this patient earlier today. She is still short of breath. On the BiPAP. Not feeling well. Late in the afternoon, nurse called to inform me that, patient rapidly desaturated and , briefly after BiPAP was switched to highflo air-vo Consultation: Dr. Moore from pulmonary Physical examination: VITAL SIGNS: 97.9, 100, 18, 11 2/60, 98% on 5 L on BiPAP GENERAL: BMI 23.5, sitting upon bed, very short of breath with BiPAP EYES: Pupils equal. Conjunctiva normal. HEENT: External appearance of nose and ears normal, oral cavity grossly normal. NECK: JVD not raised; masses not palpable. HEART: . Regular heart sounds; no edema. LUNGS: Respiratory rate increased, diminished breath sounds prolonged expiration and wheezing., Not able to speak in full sentences ABDOMEN: Soft, nontender, liver spleen not palpable, no masses palpable. PSYCH: Alert and oriented x3; mood and affect anxious. MUSCULOSKELETAL: Evidence of arthritis especially in the hands and both the proximal and distal interphalangeal joints INVESTIGATIONS, reviewed in the clinical context: White count 7.5 hemoglobin 15.6 potassium 5.1 creatinine 0.69 lactic acid 2.2 AST 48 ALT 66 EKG tracing personally reviewed by me-atrial fibrillation with rate around 100 Chest x-ray film personally reviewed by me-showing endovascular graft in the aortic arch and infiltrate of the right side Cause of : -Right-sided pneumonia suspect gram-negative organism, POA Other medical problems -Acute COPD exacerbation in a current smoker -Chronic nicotine dependence patient cigarette smoker -Persistent atrial fibrillation, patient is both on anticoagulation -Primary osteoarthritis -Psoriatic arthritis -Depression otherwise specified Disposition: Patient Plan - Discharge Summary Discharge Rx Participant: No New Discharge Prescriptions: No Action inFLIXimab [Remicade] 400 mg IVPB Q56D Sertraline HCl [Zoloft] 100 mg PO DAILY Propranolol HCl 80 mg PO BID Pantoprazole [Protonix] 40 mg PO DAILY Multivit-Min/Iron/Folic/Lutein [Centrum Silver Women Tablet] 1 tab PO DAILY Magnesium Gluconate [Magonate] 500 mg PO DAILY HYDROcodone/APAP 10-325MG [[place] 10-325] 0.5 tab PO Q4HR Glucosamine/MSM/Chrond/D3/Bosw [Ytpfcjxlthu-Dbnnps-KNP-D3 Cplt] 2 tab PO DAILY Cranberry Fruit Extract [Cranberry] 400 mg PO TID Calcium Carbonate/Vitamin D3 [Calcium 600-Vit D3 500 Softgel] 1 cap PO BID Aspirin EC [Ecotrin] 325 mg PO DAILY ALPRAZolam [Xanax] 0.25 mg PO HS Ipratropium-Albuterol Nebulize [Duoneb 0.5 mg-3 mg/3 ml Soln] 3 ml INHALATION RT-QID Furosemide [Lasix] 40 mg PO BID Linaclotide [Linzess] 145 mcg PO DAILY PRN PRN Reason: Gi Upset Gabapentin 800 mg PO TID Fluticasone/Salmeterol [Advair 500-50 Diskus] 1 puff INHALATION RT-BID Spironolactone [Aldactone] 25 mg PO DAILY Propylene Glycol/Peg 400/Pf [Systane 0.3-0.4% Eye Drops] 1 - 2 drops BOTH EYES QID PRN PRN Reason: Dry Eye(S) Discharge Medication List ALPRAZolam [Xanax] 0.25 mg PO HS 05/11/18 [History] Aspirin EC [Ecotrin] 325 mg PO DAILY 05/11/18 [History] Calcium Carbonate/Vitamin D3 [Calcium 600-Vit D3 500 Softgel] 1 cap PO BID 05/11/18 [History] Cranberry Fruit Extract [Cranberry] 400 mg PO TID 05/11/18 [History] Glucosamine/MSM/Chrond/D3/Bosw [Xlzmczfzdfp-Kiddub-NIZ-D3 Cplt] 2 tab PO DAILY 05/11/18 [History] HYDROcodone/APAP 10-325MG [[place] 10-325] 0.5 tab PO Q4HR 05/11/18 [History] Ipratropium-Albuterol Nebulize [Duoneb 0.5 mg-3 mg/3 ml Soln] 3 ml INHALATION RT-QID 05/11/18 [History] Magnesium Gluconate [Magonate] 500 mg PO DAILY 05/11/18 [History] Multivit-Min/Iron/Folic/Lutein [Centrum Silver Women Tablet] 1 tab PO DAILY 05/11/18 [History] Pantoprazole [Protonix] 40 mg PO DAILY 05/11/18 [History] Propranolol HCl 80 mg PO BID 05/11/18 [History] Sertraline HCl [Zoloft] 100 mg PO DAILY 05/11/18 [History] inFLIXimab [Remicade] 400 mg IVPB Q56D 05/11/18 [History] Fluticasone/Salmeterol [Advair 500-50 Diskus] 1 puff INHALATION RT-BID 08/28/19 [History] Furosemide [Lasix] 40 mg PO BID 08/28/19 [History] Gabapentin 800 mg PO TID 08/28/19 [History] Linaclotide [Linzess] 145 mcg PO DAILY PRN 08/28/19 [History] Propylene Glycol/Peg 400/Pf [Systane 0.3-0.4% Eye Drops] 1 - 2 drops BOTH EYES QID PRN 08/28/19 [History] Spironolactone [Aldactone] 25 mg PO DAILY 08/28/19 [History] Follow up Appointment(s)/Referral(s): Tex Vines MD [Primary Care Provider] - 1-2 days Discharge Disposition: - Preliminary Cause of Preliminary Cause of : pneumonia
== END 2019-08-30 15:45 | disposition expired | DRG 871 ==
LOC: EC 12:07 → 4MS4W 15:03 → 3NMEDONC 23:04
PROVIDERS: ADMIT Hospitalist; ATTEND Hospitalist
DX: A41.50 Gram-negative sepsis, unspecified (principal); J15.6 Pneumonia due to other Gram-negative bacteria; J96.01 Acute respiratory failure with hypoxia; I48.19 Other persistent atrial fibrillation; Z66 Do not resuscitate; F17.210 Nicotine dependence, cigarettes, uncomplicated; F32.9 Major depressive disorder, single episode, unspecified; J43.9 Emphysema, unspecified; L40.50 Arthropathic psoriasis, unspecified; M06.9 Rheumatoid arthritis, unspecified; M19.91 Primary osteoarthritis, unspecified site; M79.7 Fibromyalgia; Z79.82 Long term (current) use of aspirin; Z79.899 Other long term (current) drug therapy; Z82.49 Family history of ischemic heart disease and other diseases of the circulatory system; Z95.2 Presence of prosthetic heart valve; Z96.653 Presence of artificial knee joint, bilateral; Z88.1 Allergy status to other antibiotic agents; Z88.5 Allergy status to narcotic agent; Z88.2 Allergy status to sulfonamides; Z88.8 Allergy status to other drugs, medicaments and biological substances; H35.30 Unspecified macular degeneration; Z79.01 Long term (current) use of anticoagulants; R29.6 Repeated falls; Z90.49 Acquired absence of other specified parts of digestive tract; Z98.42 Cataract extraction status, left eye; Z98.41 Cataract extraction status, right eye
CPT/HCPCS: 36415; 71046; 80048; 80053; 83605; 85025; 85610; 85730; 87040; 93005; 93306; 94640; 94660; 96361; 96365; 96375; 99291